=== PATIENT | female | born 1990 | race Caucasian/White ===

== ENCOUNTER 2018-11-13 17:57 | Emergency (ER) | payer SELFPAY ==
[~2018-11-13] VITALS: Ht 167.6 cm; Wt 88.1 kg
[2018-11-13 19:02] VITALS: BP 122/70
== END 2018-11-13 19:02 | disposition home or self-care (01) ==
LOC: ED 17:57
DX: N39.0 Urinary tract infection, site not specified (principal)
CPT/HCPCS: J0696

== ENCOUNTER 2019-10-28 06:28 | Emergency (ER) | payer SELFPAY ==
[~2019-10-28] VITALS: Ht 167.6 cm; Wt 120.7 kg
[2019-10-28 06:33] VITALS: BP 131/46; Ht 167.6 cm; Wt 120.7 kg
== END 2019-10-28 07:09 | disposition home or self-care (01) ==
LOC: ED 06:28
DX: N39.0 Urinary tract infection, site not specified (principal)